=== PATIENT | female | born 1975 | race Asian ===

== ENCOUNTER 2020-07-23 21:11 | Inpatient (IN) | payer BC, OTHER ==
[~2020-07-23] VITALS: Ht 167.6 cm; Wt 77.6 kg
--- NOTE | 2020-07-23 21:15 | NUR ---
PT AAOX4. BIBRA C/O R ANKLE PAIN S/P FALLING OFF STAIRS. NO ACUTE DISTRESS NOTED. PT PLACED IN BED 3 ON MONIOTOR AND PULSE OX. VSS. AWAITING MD FOR EVAL AND ORDERS.
--- NOTE | 2020-07-23 21:30 | NUR ---
RADIOLOGY AT BEDSIDE FOR XRAY
[2020-07-23] MEDS ORDERED: PROPOFOL 20 ML IV ONE (22:18)
--- NOTE | 2020-07-23 22:25 | NUR ---
PT SIGNED R ANKLE REDUCTION WITH MODERATE SED CONSENT.
--- NOTE | 2020-07-23 22:30 | NUR ---
RT CALLED FOR MODERATE SEDATION
--- NOTE | 2020-07-23 22:30 | NUR ---
223 rt called to pt cindyisde for conscience sedation. pt placed on 15l nrb with ambu bag at bedside. pt resp rate and spo2 remained stable throughout procedure. rr 18 spo2 100%. pt alert and responding to questions.
--- NOTE | 2020-07-23 22:43 | NUR ---
LA ORTHO PAGED PER HILARY MONTES.
--- NOTE | 2020-07-23 22:44 | NUR ---
CALLED LAB FOR COVID SWAB
--- NOTE | 2020-07-23 22:48 | NUR ---
ANGELIKA SWABBED AND SENT TO LAB
--- NOTE | 2020-07-23 22:48 | NUR ---
SWORD SWALLOWER AT BEDSIDE FOR LABS
[2020-07-23 23:03] LABS: BASOPHILS % (AUTO) 0.3 % (0.0-2.0); EOSINOPHILS % (AUTO) 3.5 % (0.0-6.0); HEMATOCRIT 41 % (33-45); HEMOGLOBIN 13.9 g/dL (11.5-14.8); LYMPHOCYTES # (AUTO) 0.6 /CMM (0.8-4.8); LYMPHOCYTES % (AUTO) 6.5 % (20.0-44.0); MEAN CORPUSCULAR HGB CONC 34 g/dl (31.0-36.0); MEAN CORPUSCULAR VOLUME 100 fL (82-100); MONOCYTES # (AUTO) 0.5 /CMM (0.1-1.30); MONOCYTES % (AUTO) 6.5 % (2.0-12.0); NEUTROPHILS % (AUTO) 83.2 % (43.0-81.0); PLATELET COUNT (AUTO) 401 /CMM (150-450); RED BLOOD CELL COUNT(AUTO) 4.13 MIL/uL (4.0-5.2); WHITE BLOOD COUNT (AUTO) 8.4 K/uL (4.3-11.0)
[2020-07-23] MEDS ORDERED: VANCOMYCIN 1 GM VIAL ONE (23:08)
[2020-07-23 23:12] LABS: CALCIUM, SERUM 8.1 mg/dL (8.5-10.1); CREATININE 0.8 mg/dL (0.6-1.3); POTASSIUM 3.6 mmol/L (3.5-5.1)
[2020-07-23] MEDS ORDERED: ONDANSETRON HCL/PF 4 MG/2 ML VIAL IVP PRN (23:30)
[2020-07-23] MEDS ORDERED: Z GUARD REMEDY 2 OZ OINT TP PRN (23:30)
[2020-07-23] MEDS ORDERED: VANCOMYCIN 1 GM in IV D5W 250 ML IV ONE (23:30)
[2020-07-23] MEDS ORDERED: ZOLPIDEM TARTRATE 5 MG TABLET PO PRN (23:30)
[2020-07-23] MEDS ORDERED: ACETAMINOPHEN 325 MG TABLET PO PRN (23:30)
--- NOTE | 2020-07-24 01:00 | NUR ---
MS/RN RECEIVED PATIENT BY [facility]ERETT WITH ER NURSE. PATIENT IS A/O X4 COMORAN SPEAKER CURRENTLY NO SIGNS OF ANY DISTRESS. PATIENT ON ROOM AIR SATURATING AT 98% WITH NO SIGNS OF ANY SOB. PATIENT IS SR WITH HR AT 115. RIGHT WRIST #20 IV PATENT AND FLUSHING. RIGHT ANKLE IS WRAPPED UP SUSTAIN IMMOBILIZATION. PATIENT DOES NOT COMPLAIN OF ANY PAIN AT THE MOMENT. CALL LIGHT IS WITHIN REACH BED IS LOW LOCKED POSITIONS AND ALL SAFETY PRECAUTIONS APPLIED. WILL CONTINUE TO MONITOR THROUGHOUT SHIFT.
--- NOTE | 2020-07-24 01:09 | NUR ---
PT TRANSFERED TO ICU
[2020-07-24 01:22] VITALS: BP 167/91
[2020-07-24 04:00] VITALS: BP 161/92
[2020-07-24 04:34] LABS: BASOPHILS % (AUTO) 0.2 % (0.0-2.0); EOSINOPHILS % (AUTO) 0.8 % (0.0-6.0); HEMATOCRIT 42 % (33-45); HEMOGLOBIN 14.1 g/dL (11.5-14.8); LYMPHOCYTES # (AUTO) 0.9 /CMM (0.8-4.8); MEAN CORPUSCULAR HGB CONC 34 g/dl (31.0-36.0); MEAN CORPUSCULAR VOLUME 101 fL (82-100); MONOCYTES # (AUTO) 0.8 /CMM (0.1-1.30); NEUTROPHILS # (AUTO) 8.1 /CMM (1.8-8.9); PLATELET COUNT (AUTO) 420 /CMM (150-450); RED BLOOD CELL COUNT(AUTO) 4.15 MIL/uL (4.0-5.2); WHITE BLOOD COUNT (AUTO) 9.9 K/uL (4.3-11.0)
[2020-07-24 04:53] LABS: ALBUMIN 3.4 g/dL (3.4-5.0); BILIRUBIN,TOTAL 0.2 mg/dL (0.2-1.0); CALCIUM, SERUM 8.1 mg/dL (8.5-10.1); CREATININE 0.8 mg/dL (0.6-1.3); MAGNESIUM 2.4 mg/dL (1.8-2.4); PHOSPHORUS 3.5 mg/dL (2.5-4.9); POTASSIUM 3.8 mmol/L (3.5-5.1); TOTAL PROTEIN, SERUM 6.7 g/dL (6.4-8.2)
[2020-07-24] MEDS: MORPHINE SULFATE INJ 2 MG/ML DISP.SYRIN IV PRN (05:09)
[2020-07-24 05:21] LABS: THYROID STIMULATING HORMONE 1.847 uIU/mL (0.358-3.74)
[2020-07-24] MEDS: IV NS 0.9% 1,000 ML IV PRN ×2 (05:49→14:55)
--- NOTE | 2020-07-24 07:15 | NUR ---
PATIENT IN BED RESTING. NO COMPLAINTS OF ANY PAIN. ALL SAFETY PRECAUTIONS APPLIED. ENDORSED PATIENT TO MORNING SHIFT NURSE FOR PRICE
--- NOTE | 2020-07-24 07:30 | NUR ---
RN OPENING NOTES RECEIVED PATIENT IN BED, a/oX4, ON ROOM AIR, NO S/SX OF RESP DISTRESS OR sob NOTED, DENIES PAIN AND DISCOMFORT AT THIS MOMENT,ICU MONITOR READINGS SR/ST . PATIENT IS ABLE TO MAKE NEED KNOWN, USING BEDPAN FOR BATHROOM, R ANKLE DRESSING NOTED,AWARE OF OPEN FRACTURE. IV NOTED ON R WRIST G 20, INTACT AND PATENT. SAFETY MEASURES IMPLEMENTED, CALL LIGHT IN REACH, WILL CONT TO MONITOR CLOSELY
[2020-07-24] MEDS: ENOXAPARIN SODIUM 40 MG/0.4 ML DISP.SYRIN SQ SCH (09:00)
--- NOTE | 2020-07-24 09:10 | NUR ---
transfer to [facility] unit via bed, room 106
[2020-07-24 12:00] VITALS: BP 161/92
[2020-07-24] MEDS: HYDROCODONE/APAP 5/325MG TABLET PO PRN ×2 (15:03→21:34)
[2020-07-24 16:00] VITALS: BP 155/83
--- NOTE | 2020-07-24 19:27 | NUR ---
RN CLOSING NOTE Patient remains in bed, with no change of condition, comfort needs are met, safety measures implemented, call light in reach, bed in lowest position, will endorse to PM shift RN for PRICE
[2020-07-24 20:00] VITALS: BP 158/91
--- NOTE | 2020-07-24 20:00 | NUR ---
RN OPENING NOTE PT RECEIVED IN BED. PT IS A/A/O X3. PT ON RA SATING 97%, UNLABORED BREATHING. PT HAS R WRIST IV PATENT AND FLUSHES WELL.SAFETY MEASURES IN PLACE SIDE RAILS UP X2, BED AT LOWEST POSITION, LOCKED, CALL LIGHT IN REACH.
[2020-07-25] MEDS: IV NS 0.9% 1,000 ML IV PRN (03:26)
[2020-07-25 04:00] VITALS: BP 161/92
--- NOTE | 2020-07-25 07:15 | NUR ---
RN OPENING NOTE Received patient awake bed appears calm and relaxed HOB elevated on RA tolerating well no signs of distress. AO x4. Maintained NPO for surgery today. Will plan to get MD to talk to her for consent. R wrist #20 flushes well. Noted with R Leg cast intact. No signs of skin integrity issues. No co pain or discomfort. Assisted to bedpan. Safety measures reinforced. Call light within reach. Side rails up x2. Will cont to monitor.
--- NOTE | 2020-07-25 07:21 | NUR ---
RN CLOSING NOTE PT REMAINED STABLE DURING MY SHIFT, REPORT GIVEN TO INCOMING SHIFT FOR PRICE.
[2020-07-25 08:00] VITALS: BP 160/75
[2020-07-25] MEDS: VALSARTAN 80 MG TABLET PO SCH (08:56)
[2020-07-25] MEDS: ENOXAPARIN SODIUM 40 MG/0.4 ML DISP.SYRIN SQ SCH (08:57)
--- NOTE | 2020-07-25 09:00 | NUR ---
COLLECTED URINE SPECIMEN FOR TEST. CALLED LABS.
--- NOTE | 2020-07-25 10:30 | NUR ---
CONSENT SIGNED BY PATIENT FOR R ANKLE PROCEDURE
[2020-07-25] MEDS: PIPERACILLIN /TAZOBACTAM 3.375 G in IV D5W 50 ML IV SCH ×2 (13:44→18:15)
--- NOTE | 2020-07-25 14:15 | NUR ---
ACCOMPANIED PT ON BED TO CT SCAN WITH KERRY. PT CAME BACK FROM CT TOLERATED WELL NO SIGNS OF DISTRESS OR DISCOMFORT.
[2020-07-25] MEDS ORDERED: HYDROMORPHONE INJ 2 MG/ML DISP.SYRIN ONE (14:39)
[2020-07-25] MEDS ORDERED: BACITRACIN 50000 UNITS/VIAL ONE (14:41)
[2020-07-25] MEDS ORDERED: BUPIVACAINE 0.5 % PF 150 MG/30 ML VIAL ONE (14:41)
--- NOTE | 2020-07-25 14:55 | NUR ---
PT BROUGHT TO OR FOR SURGERY ACCOMPANIED BY 3 NURSES.
[2020-07-25] MEDS ORDERED: VANCOMYCIN 1 GM in IV D5W 250 ML IV SCH (15:00)
[2020-07-25] MEDS ORDERED: IV D5/0.45 NACL 500 ML IV ONE (15:00)
[2020-07-25] MEDS ORDERED: ROCURONIUM BROMIDE 50 MG/5 ML ONE (15:28)
[2020-07-25 18:00] VITALS: BP 139/83
--- NOTE | 2020-07-25 18:07 | NUR ---
PATIENT CAME BACK TO ROOM 106 WITH VITAL SIGNS FOLLOWS BP 139/83 TEMP 97.4 HR 76 O2 SAT 97% RR 18. PLACED ON NC 2L NO SIGNS OF DISTRESS. ORDER TO RESUME PRE OP ORDERS. NWB RLE. START LOVENOX IN 24 HRS. HGB HAS TO BE >9. CONTINUE VANCO AND ZOSYN.
[2020-07-25] MEDS ORDERED: ANESTHESIA TRAY IN PYXIS 1 EA TRAY MC ONE (18:24)
[2020-07-25 19:30] VITALS: BP 133/84
--- NOTE | 2020-07-25 19:30 | NUR ---
MS RN NOTE RECEIVED PT IN BED ASLEEP. EASILY AROUSABLE. PT A LITTLE DROWSY. AAO X3. NO SOB NO DISTRESS OR DISCOMFORT NOTED. PT DENIES PAIN AT THIS TIME. O2 AT 3L VIA NC. O2 SAT AT 97%. AT RA O2 SAT 90-91%. KEPT HOB ELEVATED. DVT PUMP APPLIED ON LEFT LEG ONLY. RLE COVERED WITH SURGICAL DRESSING INTACT, CLEAN, AND DRY. ICE PACK APPLIED TO SURGICAL SITE. RIGHT WRIST #20 SL, INTACT AND PATENT WITH TKO NS. NO S/S OF INFILTRATION NOTED. KEPT RLE ELEVATED ON PILLOWS. ISOLATION PRECAUTIONS IN PLACE POSITIVE FOR COVID. SIDE RAILS UP. CALL LIGHT WITHIN REACH. VSS. NO FEVER. WILL CONTINUE TO MONITOR CLOSELY.
--- NOTE | 2020-07-25 19:32 | NUR ---
PATIENT IN BED NO SIGNS OF DISTRESS. ENDORSED TO SEAM TAPER MACHINE NURSE.
[2020-07-25 20:00] VITALS: BP 122/71
[2020-07-25 20:30] VITALS: BP 116/76
[2020-07-25] MEDS: VANCOMYCIN 1 GM in IV D5W 250 ML IV SCH (20:32)
[2020-07-26] VITALS (8 sets, daily range): BP systolic 128–138; BP diastolic 80–88
[2020-07-26] MEDS: PIPERACILLIN /TAZOBACTAM 3.375 G in IV D5W 50 ML IV SCH ×5 (00:26→23:21)
--- NOTE | 2020-07-26 03:23 | NUR ---
MS COLEMAN NOTE PT IS CURRENTLY RESTING COMFORTABLY IN BED AT THIS TIME. NO SOB OR DISTRESS NOTED. WILL CONTINUE TO MONITOR. Addendum: 07/26/20 at 0330 by JOSEPH MIRANDA RN PT STILL ON 2L O2 VIA NC. O2 SATURATION AT 100.
[2020-07-26] MEDS: VANCOMYCIN 1 GM in IV D5W 250 ML IV SCH ×3 (04:26→21:06)
[2020-07-26 06:20] LABS: BASOPHILS % (AUTO) 0.1 % (0.0-2.0); EOSINOPHILS % (AUTO) 0.3 % (0.0-6.0); HEMATOCRIT 44 % (33-45); HEMOGLOBIN 14.4 g/dL (11.5-14.8); LYMPHOCYTES # (AUTO) 0.8 /CMM (0.8-4.8); LYMPHOCYTES % (AUTO) 8.9 % (20.0-44.0); MEAN CORPUSCULAR HGB CONC 33 g/dl (31.0-36.0); MEAN CORPUSCULAR VOLUME 101 fL (82-100); MONOCYTES # (AUTO) 0.9 /CMM (0.1-1.30); MONOCYTES % (AUTO) 10.2 % (2.0-12.0); NEUTROPHILS # (AUTO) 7.3 /CMM (1.8-8.9); NEUTROPHILS % (AUTO) 80.5 % (43.0-81.0); PLATELET COUNT (AUTO) 388 /CMM (150-450); WHITE BLOOD COUNT (AUTO) 9.1 K/uL (4.3-11.0)
--- NOTE | 2020-07-26 06:30 | NUR ---
MS RN NOTE PT IS CURRENTLY RESTING IN BED AND SLEPT WELL THROUGHOUT THE NIGHT. VSS. NO SIGNS OF SOB OR DISTRESS. PT DID NOT VOID ALL NIGHT. BLADDER CHECKED, NON DISTENDED. PT DENIES ANY DISCOMFORT. ABDOMEN IS SOFT. PT BEGAN DRINKING FLUIDS AT 0500. TOLERATING WELL. STILL ON O2 @2L VIA NC SATURATING AT 100%. SIDE RAILS UP X2. CALL LIGHT WITHIN REACH. WILL ENDORSE TO DAY SHIFT NURSE FOR CONTINUITY OF CARE.
[2020-07-26 06:36] LABS: CREATININE 0.9 mg/dL (0.6-1.3); POTASSIUM 3.1 mmol/L (3.5-5.1)
[2020-07-26] MEDS: HYDROCODONE/APAP 5/325MG TABLET PO PRN ×3 (06:49→23:22)
--- NOTE | 2020-07-26 06:50 | NUR ---
MS RN NOTE PT VERBALIZED PN 04/26, WAS GIVEN NORCO PRN. PT WAS ABLE TO VOID 100ML.
--- NOTE | 2020-07-26 07:25 | NUR ---
FLOW MANAGER.[facility] OPENING NOTE RECEIVED PT IN BED AWAKE, ALERT AND ORIENTED X4. NO ACUTE DISTRESS OR SOB NOTED AT THIS TIME. PT IS IS IN STABLE CONDITION AT THIS TIME. PT IS ON OXYGEN 2L VIA N/C SATURATING AT 99% AT THIS TIME. PT IS ABLE TO USE THE BED KIDD. PT HAD A RIGHT ANKLE ORIF EXTREMITY ELEVATED TOLERATED. PT NOTED WITH A RIGHT WRIST 20' INTACT, PATENT AND FLUSHING WELL AT THIS TIME. ALL SAFETY MEASURES IMPLEMENTED AND FOLLOWED PER COVID 19. CALL LIGHT WITHIN REACH AND FUNCTIONING. BED LOCKED AND IN LOWEST POSITION. WILL CONTINUE TO MONITOR AND ASSESS PT.
[2020-07-26] MEDS ORDERED: POTASSIUM CHLORIDE 20 MEQ TAB.PRT.SR PO ONE (07:30)
[2020-07-26] MEDS: VALSARTAN 80 MG TABLET PO SCH (08:20)
--- NOTE | 2020-07-26 09:46 | NUR ---
ASSISTANT READING TEACHER/JEWEL NOTE SPOKE TO JOSH AND GAVE HER PT'S CORRECT CELL PHONE NUMBER WHICH IS ([phone]). PT IS IN STABLE CONDITION AT THIS TIME. NO COMPLAINTS OF PAIN OR DISCOMFORT. NO SOB OR ACUTE DISTRESS NOTED. PT IS CURRENTLY IN BED ON HER PHONE. CALL LIGHT WITHIN REACH AND FUNCTIONING. WILL CONTINUE TO MONITOR AND ASSESS PT.
[2020-07-26] MEDS ORDERED: ENOXAPARIN SODIUM 40 MG/0.4 ML DISP.SYRIN SQ SCH (17:00)
--- NOTE | 2020-07-26 18:22 | NUR ---
CRTT/JEW[facility] CLOSING NOTE PT IS CURRENTLY IN BED AWAKE, ALERT AND ORIENTED X4. PT IS ABLE TO MAKE HER NEEDS KNOWN. PT IS ON ROOM AIR CURRENTLY (PER PT'S REQUEST AND WANT) AND SATURATING AT 98% AT THIS TIME. PT IS IN STABLE CONDITION AT THIS TIME WITH NO ACUTE DISTRESS OR SOB NOTED. ALL SCHEDULED MEDS GIVEN AND TOLERATED WELL. ALL NEEDS MET. PT KEPT DRY CLEAN AND COMFORTABLE. PT IS ABLE TO USE A BED KIDD. PT HAS A RIGHT WRIST 20' INTACT, PATENT AND FLUSHING WELL. ALL SAFETY MEASURES TAKEN AND IMPLEMENTED THROUGH OUT SHIFT PER COVID 19. CALL LIGHT WITHIN REACH AND FUNCTIONING. WILL ENDORSE TO NEXT SHIFT NURSE FOR PRICE.
--- NOTE | 2020-07-26 19:39 | NUR ---
MS RN OPENING NOTES PATIENT AWAKE IN BED. A/OX4. ABLE TO VERBALIZE NEEDS. ON RA; SPO2 96; DENIES ANY SOB; BREATHING IS EVEN AND UNLABORED. PATIENT C/O RIGHT LEG PAIN RATED 2-3/10; DOES NOT REQUEST ANY PAIN MEDS AT THIS TIME. RIGHT LEG DRESSING PRESENT; DRY AND INTACT; LEG ELEVATED ON PILLOW. IV PRESENT ON RIGHT WRIST, SIZE 20, INTACT & PATENT WITH NS RUNNING TKO. SAFETY MEASURES IN PLACE AND PATIENT'S NEEDS MET. BED LOCKED, HOB ELEVATED, SIDE RAILS X2, CALL LIGHT WITHIN REACH. WILL CONTINUE TO MONITOR.
[2020-07-26] MEDS: MORPHINE SULFATE INJ 2 MG/ML DISP.SYRIN IV PRN (20:30)
--- NOTE | 2020-07-26 20:30 | NUR ---
MS RN NOTES PATIENT C/O OF RIGHT ANKLE PAIN RATED 8/10. PER PATIENT'S REQUEST ADMINISTERED PRN MORPHINE 4MG IV. VITAL SIGNS WNL. APPLIED ICE PACKS ON ANKLE. WILL CONTINUE TO MONITOR.
--- NOTE | 2020-07-26 20:49 | NUR ---
MS RN NOTES SCHEDULED IVPB VANCO NOT FOUND IN MED ROOM. NOTIFIED PHARMACY; WILL SEND MEDICATION TO UNIT.
--- NOTE | 2020-07-26 23:22 | NUR ---
MS RN NOTES PATIENT C/O OF RIGHT LEG PAIN RATED 7/10. PER PATIENT'S REQUEST, ADMINISTERED PRN NORCO 5MG. VITAL SIGNS WNL. CALL LIGHT WITHIN REACH. WILL CONTINUE TO MONITOR.
[2020-07-27] MEDS: VANCOMYCIN 1 GM in IV D5W 250 ML IV SCH ×2 (04:09→12:44)
[2020-07-27] MEDS: PIPERACILLIN /TAZOBACTAM 3.375 G in IV D5W 50 ML IV SCH ×2 (06:24→12:06)
--- NOTE | 2020-07-27 06:55 | NUR ---
MS RN CLOSING NOTES PATIENT SLEEPING, EASY TO AWAKEN. A/OX4. NO ADVERSE ADVENTS DURING SHIFT. STABLE ON RA; NO S/S OF ACUTE RESPIRATORY DISTRESS; BREATHING IS EVEN AND UNLABORED. NO C/O PAIN. RIGHT LEG DRESSING REMAINS DRY AND INTACT. IV PRESENT ON RIGHT WRIST, SIZE 20, INTACT & PATENT WITH NS RUNNING ZOSYN AT 100 ML/HR. SAFETY MEASURES IN PLACE AND PATIENT'S NEEDS MET. BED LOCKED, HOB ELEVATED, SIDE RAILS X2, CALL LIGHT WITHIN REACH. WILL ENDORSE TO DAY SHIFT RN PLAN OF CARE.
[2020-07-27 07:41] LABS: BASOPHILS % (AUTO) 0.7 % (0.0-2.0); EOSINOPHILS % (AUTO) 5.3 % (0.0-6.0); HEMATOCRIT 42 % (33-45); HEMOGLOBIN 13.9 g/dL (11.5-14.8); LYMPHOCYTES # (AUTO) 0.7 /CMM (0.8-4.8); LYMPHOCYTES % (AUTO) 10.9 % (20.0-44.0); MEAN CORPUSCULAR HGB CONC 33 g/dl (31.0-36.0); MEAN CORPUSCULAR VOLUME 101 fL (82-100); MONOCYTES # (AUTO) 0.7 /CMM (0.1-1.30); NEUTROPHILS # (AUTO) 4.7 /CMM (1.8-8.9); NEUTROPHILS % (AUTO) 72.1 % (43.0-81.0); PLATELET COUNT (AUTO) 399 /CMM (150-450); RED BLOOD CELL COUNT(AUTO) 4.15 MIL/uL (4.0-5.2); WHITE BLOOD COUNT (AUTO) 6.6 K/uL (4.3-11.0)
[2020-07-27 08:00] VITALS: BP 143/91
--- NOTE | 2020-07-27 08:00 | NUR ---
MS RN NOTES PATIENT IN BED AWAKE ALERT, ORIENTED X3. RESTING COMFORTABLE. PERIPHERAL IV INTACT, PATENT. PATIENT ON COVID ISOLATION. PATIENT DENIES ANY SYMPTOMS. SAFETY MEASURES IN PLACE. WILL CONTINUE TO MONITOR.
[2020-07-27 08:14] LABS: CALCIUM, SERUM 8.4 mg/dL (8.5-10.1); CREATININE 0.8 mg/dL (0.6-1.3); POTASSIUM 3.5 mmol/L (3.5-5.1)
[2020-07-27] MEDS: VALSARTAN 80 MG TABLET PO SCH (08:27)
[2020-07-27] MEDS ORDERED: ONDA4TAB5 PO (13:24)
[2020-07-27] MEDS ORDERED: DOCU100C36 PO (13:24)
[2020-07-27] MEDS ORDERED: ASPI-1420 PO (13:24)
[2020-07-27] MEDS ORDERED: CEPH500C2 PO (13:24)
[2020-07-27] MEDS ORDERED: VALS160T2 PO (13:24)
[2020-07-27] MEDS ORDERED: HYDR-4384 PO (13:24)
[2020-07-27 16:00] VITALS: BP 128/76
--- NOTE | 2020-07-27 16:32 | NUR ---
MS RN NOTES PATIENT DISCHARGED HOME WITH . DISCHARGE TEACHING PROVIDED, VERBALIZED UNDERSTANDING. PATIENT EDUCATED ON COVID ISOLATION AT HOME. PERIPHERAL IV REMOVED WITH MINIMAL BLEEDING. ID BAND REMOVED. ALL BELONGINGS ACCOUNTED FOR, BELONGING LIST SIGNED. PATIENT PROVIDED WITH DR. MICHAELS PHONE NUMBER. AWARE OF ALL ABNORMAL LABS AND TESTS.
== END 2020-07-27 16:32 | disposition home health service (06) | DRG 492 ==
LOC: ER 21:12 → ICU 23:50 → MEDSG1 07-24 08:19 → MEDSG2 07-26 13:51
PROVIDERS: ADMIT Hospitalist; ATTEND Nurse Practitioner Acute Care
PROC: 0QSJ04Z Reposition Right Fibula with Internal Fixation Device, Open Approach (ICD-10-PCS; principal; 2020-07-25)
PROC: 0QSG04Z Reposition Right Tibia with Internal Fixation Device, Open Approach (ICD-10-PCS; principal; 2020-07-25)
DX: S82.841A Displaced bimalleolar fracture of right lower leg, initial encounter for closed fracture (principal); U07.1 COVID-19; S93.04XA Dislocation of right ankle joint, initial encounter; W10.9XXA Fall (on) (from) unspecified stairs and steps, initial encounter; Y92.9 Unspecified place or not applicable
CPT/HCPCS: 36415; 71045-TC; 73590-TC; 73600-TC; 73610-TC; 73700-TC; 80048-TC; 80053-TC; 80061-TC; 80202-TC; 83735-TC; 84100-TC; 84443-TC; 84702-TC; 84703-TC; 85025-TC; 85730-TC; 87081-TC; 97116-TC; 97530-TC; A4217; A6402; C1713; C9803-CS; G0378; G0500; J0690; J1170; J1650; J2270; J2405; J2543; J2704; J2765; J3370; J3490; J7030; J7060